=== PATIENT | female | born 2000 | race Caucasian/White ===

== ENCOUNTER 2022-06-21 23:32 | Emergency (ER) | payer SELFPAY ==
[~2022-06-21] VITALS: Ht 162.6 cm; Wt 55.3 kg
--- NOTE | 2022-06-21 23:34 | NUR ---
PT BIBA BLS ER BED 7
[2022-06-21 23:36] VITALS: BP 114/70
[2022-06-22 00:35] VITALS: BP 114/70
--- NOTE | 2022-06-22 00:35 | NUR ---
Patient discharged with v/s stable. Written and verbal after care instructions given and explained. Patient verbalized understanding. Ambulatory with steady gait. All questions addressed prior to discharge. Advised to follow up with PMD. DX: MENSTRUATION
[2022-06-22] MEDS ORDERED: DEXTROSE 50% 50 ML SYR IVP ONE (00:54)
== END 2022-06-22 00:35 | disposition home or self-care (01) ==
LOC: MED 23:32
DX: N94.6 Dysmenorrhea, unspecified (principal); G47.00 Insomnia, unspecified; F32.A Depression, unspecified
CPT/HCPCS: 81025; 99283; J7060